=== PATIENT | female | born 1960 | race Caucasian/White ===

== ENCOUNTER → 2022-10-31 13:07 | Outpatient (BNVA) | payer OTHER, SELFPAY | PROVIDERS: PCP Physician Assistant; Referring Provider Physician Assistant; Visit Provider Physician Assistant ==

== ENCOUNTER 2023-06-20 09:41 | Outpatient (AMB) | payer OTHER, SELFPAY ==
--- NOTE | 2023-06-20 09:55 | A.OFFVIS_ITS ---
Intake Vital Signs 3 06/20/23 10:03 Height 5 ft 4 in Weight 105 lb 8 oz BMI 18.1 BP 136/69 Blood Pressure Location Lt brachial Position Sitting Respiration 18 Pulse 64 Pulse Source Pulse Oximeter Pulse Oximetry (%) 96 Oxygen Delivery Method Room Air Intake Visit Reasons: Neck pain Allergies No Known Allergies Allergy (Verified 06/20/23 09:53) HPI HPI Comments 2 History of Present Illness0 Details Chrissy a very pleasant 62-year-old female who presents to the office today for evaluation management of her chronic neck pain Patient reports she has been suffering with this pain for approximately 1 year, she denies inciting injury. Denies previous surgical interventions of her neck or back. Pain is rated today 9/10,worse with movement. She reports the neck pain is radiating up into her head and causing her severe headaches. She has an appointment in one-week with Neurology for migraines. Currently she is only taking Fioricet for the headaches, up to 5 tabs daily, with some improvement. She has tried nonsteroidal anti-inflammatory medication, baclofen, gabapentin and tramadol all without improvement of her neck or back pain. Patient reports that she is not able to tolerate physical therapy as it is too painful. She reports pain radiates to the top of her shoulders, denies radiation down either arm. Recent MRI performed by her primary care doctor, she states she was told she has arthritis. She has been using lidocaine patches with some improvement. Patient has never undergone chiropractor, acupuncture, massage or previous attempts at interventional management. In terms of muscle damage condition is described as aching, tiring, exhausting, throbbing. Pain is negatively impacting patient's enjoyment of life, general activity, mood, recreational activities, relationships people and walking Patient denies implantable devices, current use of anticoagulation. Review of Systems Const All systems reviewed & are unremarkable except as noted in HPI and below Physical Exam Vital Signs: Last Vital Signs Pulse 64 06/20/23 10:03 Resp 18 06/20/23 10:03 BP 136/69 06/20/23 10:03 Pulse Ox 96 06/20/23 10:03 Oxygen Delivery Method Room Air 06/20/23 10:03 BMI result Body Mass Index 18.1 General: awake, alert, oriented. Answers questions appropriately. Fully engaged in examination. Skin: warm, dry, intact HEENT: Normocephalic. Hearing intact. Cardiac: External chest normal in appearance. Respiratory: No cough, audible wheezing or stridor. Abdomen: without gross distension. MS: No obvious swelling or deformities. Bilateral upper extremity strength 5/5 Bilateral upper extremity DTR intact Spurling positive Decreased cervical range of motion in all planes, notable for pain agrees with all range of motion Tenderness to palpation upper and middle trapezius bilaterally Tenderness to palpation midline cervical vertebrae and cervical paraspinal muscles Neurological: Oriented to person, place, time and situation. Thought process intact. No gait abnormalities appreciated. Psychiatric: Appropriate mood and affect. Good judgment and insight. Results Reviewed Results Reviewed: 06/04/2023 MRI CSpine W/O Assessment & Plan Assessment & Plan (1) Cervical spondylosis: Code(s): M47.812 - Spondylosis without myelopathy or radiculopathy, cervical region (2) Trapezius muscle strain: Code(s): S46.819A - Strain of other muscles, fascia and tendons at shoulder and upper arm level, unspecified arm, initial encounter Plan He says a very pleasant 62-year-old female who presented to the office today for evaluation management of her chronic neck pain. History, physical exam and provocative testing consistent with lumbar spondylosis and trapezius muscle strain. Patient is not able to tolerate physical therapy due to the pain. She has exhausted greater than 6 months of conservative therapy including nonsteroidal anti-inflammatory medication, heat, ice, topical patches, prescription medications muscle relaxers all without improvement of her pain Methocarbamol 500 mg p.o. t.i.d. as needed, patient advised on cautions for use. Salonpas patches, 1 patch daily as needed. Alternate with lidocaine patches, do not apply both at the same time. Follow up with Neurology as planned for headaches Discussed options for treatment including diagnostic interventional testing, epidural steroid injections, peripheral nerve stimulation with Sprint, RFA and more permanent neuromodulation. Informational pamphlets provided. Will schedule for fluoroscopy guided diagnostic bilateral C3-C4-C5 medial branch blocks with local anesthetic. Plan for Sprint versus RFA pending positive results of the diagnostic injections. All questions and concerns have been answered and patient agrees with the plan. Follow up after injections, sooner if needed. Medications: New 2 methocarbamol Discontinue use of baclofen while taking this medication. No driving while taking this medication. 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
[2023-06-20 10:03] VITALS: BP 136/69; PULSE 64; RESP 18; O2SAT 96; BMI 18.1
== END 2023-06-20 10:31 | disposition home or self-care (01) ==
PROVIDERS: PCP Physician Assistant; Visit Provider Registered Nurse Emergency
DX: M47.812 Spondylosis without myelopathy or radiculopathy, cervical region (principal); S46.819A Strain of other muscles, fascia and tendons at shoulder and upper arm level, unspecified arm, initial encounter
CPT/HCPCS: 99204

== ENCOUNTER → 2023-06-20 09:41 | Outpatient (BNVA) | payer OTHER, SELFPAY | PROVIDERS: PCP Physician Assistant; Visit Provider Registered Nurse Emergency ==

== ENCOUNTER 2023-07-31 06:52 | Outpatient (REF) | payer OTHER, SELFPAY ==
--- NOTE | ~2023-07-31 | FL_ITS ---
EXAMINATION: XR FLUOROSCOPY WITH IMAGES CLINICAL INFORMATION: Spondylosis without myelopathy or radiculopathy, cervical region. COMPARISON: None available. TECHNIQUE: Fluoroscopy Supervised By: Dr. Salmeron. Fluoroscopy Time: 0.6. Cumulative Dose: 2.12 mGy. DAP: 0.0347 Gycm2. Images: 6. FINDINGS: Intraoperative fluoroscopy and spot films were performed during a procedure in the OR. [place] are seen bilaterally overlying the upper cervical spine with contrast surrounding their tips. Please see Dr. Salmeron's report for complete details. FL/FL guidance in treatment room IMPRESSION: Intraoperative fluoroscopy and spot films were obtained. Please see Dr. Salmeron's report for complete details.
== END 2023-07-31 06:53 | disposition home or self-care (01) ==
LOC: CF 06:52
PROVIDERS: PCP Physician Assistant; Visit Provider Anesthesiology
DX: M47.812 Spondylosis without myelopathy or radiculopathy, cervical region (principal); S46.819D Strain of other muscles, fascia and tendons at shoulder and upper arm level, unspecified arm, subsequent encounter
CPT/HCPCS: 64490; 64491; J2795; Q9967

== ENCOUNTER 2023-07-31 09:02 | Outpatient (AMB) | payer OTHER, SELFPAY ==
--- NOTE | 2023-07-31 09:32 | A.OFFVIS_ITS ---
Vital Signs 07/31/23 10:09 07/31/23 10:11 Height 5 ft 4 in Weight 105 lb BMI 18.0 BP 136/84 140/88 H Blood Pressure Location Lt brachial Lt brachial Position Sitting Sitting Respiration 18 20 Pulse 78 84 Pulse Source Pulse Oximeter Pulse Oximeter Pulse Oximetry (%) 98 84 L Oxygen Delivery Method Room Air Room Air Comment Pre-Op Post-Op Intake Visit Reasons: BILATERAL DIAGNOSTIC C3, C4, C5 MBB Allergies No Known Allergies Allergy (Verified 06/20/23 09:53) Physical Exam Vital Signs: Last Vital Signs Pulse 84 07/31/23 10:11 Resp 20 07/31/23 10:11 BP 140/88 H 07/31/23 10:11 Pulse Ox 84 L 07/31/23 10:11 Oxygen Delivery Method Room Air 07/31/23 10:11 BMI result Body Mass Index 18.0 Assessment & Plan Assessment & Plan (1) Cervical spondylosis: Code(s): M47.812 - Spondylosis without myelopathy or radiculopathy, cervical region Category: Medical Plan: Bilateral C3-C4-C5 diagnostic medial branch block. ?Informed consent was explained to the patient. All questions were explained and answered.? The patient was taken inside the operating room where she was positioned prone on the operating table. Time-out was performed delineating correct site, side, the nature of the procedure, patient's allergy, preoperative antibiotic if needed.? All operating room staff was participating in OR time-out procedure. The back of the neck and upper back were prepped with ChloraPrep and draped with sterile towels.? Sterilely draped C-arm was brought over the operating field and sq picture of? C3-C4-C5 vertebrae were delineated on the screen.? Points of interest were delineated as lateral masses bilaterally of the vertebrae as above. The waste of each lateral mass was chosen as the target of the tip of the needles on AP view and lateral view was used as a safety view for the tips of the needles position.?? The projections of the point of interest to the skin were injected with the small amount of local anesthetic lidocaine 2% 1-1.5 cc.? After that 22 gauge 3and 1/2 inch? spinal needles were driven to the point of interest in tunnel vision fashion. After needles gently contacted the bone at the point of interests the needle was injected with small amount of the contrast. The injections did not demonstrate intravascular or intrathecal spread.. After that ropivacaine 0.5%-1cc. was injected into each location of the needles.? Upon completion of the injections the needles were removed and sterile dressings were applied, the patient was a taken? outside of the operating room to recovery room where she recovered uneventfully. (2) Trapezius muscle strain: Code(s): S46.819A - Strain of other muscles, fascia and tendons at shoulder and upper arm level, unspecified arm, initial encounter Category: Medical Plan He says a very pleasant 62-year-old female who presented to the office today for evaluation management of her chronic neck pain. History, physical exam and provocative testing consistent with lumbar spondy losis and trapezius muscle strain. Patient is not able to tolerate physical therapy due to the pain. She has exhausted greater than 6 months of conservative therapy including nonsteroidal anti-inflammatory medication, heat, ice, topical patches, prescription medications muscle relaxers all without improvement of her pain Methocarbamol 500 mg p.o. t.i.d. as needed, patient advised on cautions for use. Salonpas patches, 1 patch daily as needed. Alternate with lidocaine patches, do not apply both at the same time. Follow up with Neurology as planned for headaches Discussed options for treatment including diagnostic interventional testing, epidural steroid injections, peripheral nerve stimulation with Sprint, RFA and more permanent neuromodulation. Informational pamphlets provided. Will schedule for fluoroscopy guided diagnostic bilateral C3-C4-C5 medial branch blocks with local anesthetic. Plan for Sprint versus RFA pending positive results of the diagnostic injections. All questions and concerns have been answered and patient agrees with the plan. Follow up after injections, sooner if needed. Orders: Orders FL guidance in treatment room Today M47.812 - Spondylosis without myelopathy or radiculopathy, cervical region Coding Level of Care Code Procedure Only Diagnoses Cervical spondylosis M47.812 Trapezius muscle strain S46.819A
[2023-07-31 10:09] VITALS: BP 136/84; PULSE 78; RESP 18; O2SAT 98; BMI 18.0
[2023-07-31 10:11] VITALS: BP 140/88; PULSE 84; RESP 20; O2SAT 84
== END 2023-07-31 10:09 | disposition home or self-care (01) ==
LOC: HO.PMCPRC 09:02
PROVIDERS: PCP Physician Assistant; Visit Provider Anesthesiology
DX: M47.812 Spondylosis without myelopathy or radiculopathy, cervical region (principal); S46.819A Strain of other muscles, fascia and tendons at shoulder and upper arm level, unspecified arm, initial encounter
CPT/HCPCS: 64490; 64491

== ENCOUNTER 2023-08-03 11:25 | Outpatient (AMB) | payer OTHER, SELFPAY ==
--- NOTE | 2023-08-03 11:30 | A.OFFVIS_ITS ---
Vital Signs 3 08/03/23 12:11 Height 5 ft 4 in Weight 145 lb BMI 24.9 BP 147/77 H Blood Pressure Location Lt brachial Position Sitting Respiration 18 Pulse 79 Pulse Source Pulse Oximeter Pulse Oximetry (%) 96 Oxygen Delivery Method Room Air Intake Visit Reasons: BILATERAL DIAGNOSTIC C3, C4, C5 MBB Allergies No Known Allergies Allergy (Verified 06/20/23 09:53) HPI Comments Details: Chrissy presents back to the office today for follow up, 2 days s/p bilateral diagnostic C3, C4, C5 MBBs. Patient reports very little improvement in her pain after the procedure. prior to procedure 8/10 1 hour post 4/10 2 hours post 0/10 3 hours post 4/10 4 hours post and beyond return to baseline Reports headaches persisted. They are daily and bilateral. 12/26. Was seen by Neurology 2 weeks ago and started on 25 mg of amitriptyline daily. Prior: Chrissy a very pleasant 62-year-old female who presents to the office today for evaluation management of her chronic neck pain Patient reports she has been suffering with this pain for approximately 1 year, she denies inciting injury. Denies previous surgical interventions of her neck or back. Pain is rated today 9/10,worse with movement. She reports the neck pain is radiating up into her head and causing her severe headaches. She has an appointment in one-week with Neurology for migraines. Currently she is only taking Fioricet for the headaches, up to 5 tabs daily, with some improvement. She has tried nonsteroidal anti-inflammatory medication, baclofen, gabapentin and tramadol all without improvement of her neck or back pain. Patient reports that she is not able to tolerate physical therapy as it is too painful. She reports pain radiates to the top of her shoulders, denies radiation down either arm. Recent MRI performed by her primary care doctor, she states she was told she has arthritis. She has been using lidocaine patches with some improvement. Patient has never undergone chiropractor, acupuncture, massage or previous attempts at interventional management. In terms of muscle damage condition is described as aching, tiring, exhausting, throbbing. Pain is negatively impacting patient's enjoyment of life, general activity, mood, recreational activities, relationships people and walking Patient denies implantable devices, current use of anticoagulation. Review of Systems Const All systems reviewed & are unremarkable except as noted in HPI and below Physical Exam Vital Signs: Last Vital Signs Pulse 79 08/03/23 12:11 Resp 18 08/03/23 12:11 BP 147/77 H 08/03/23 12:11 Pulse Ox 96 08/03/23 12:11 Oxygen Delivery Method Room Air 08/03/23 12:11 BMI result Body Mass Index 24.9 General: awake, alert, oriented. Answers questions appropriately. Fully engaged in examination. Skin: warm, dry, intact HEENT: Normocephalic. Hearing intact. Cardiac: External chest normal in appearance. Respiratory: No cough, audible wheezing or stridor. Abdomen: without gross distension. MS: No obvious swelling or deformities. Decreased cervical range of motion in all planes, notable for pain increase with range of motion Tenderness to palpation upper and middle trapezius bilaterally Tenderness to palpation midline cervical vertebrae and cervical paraspinal muscles Tenderness to scalp over occiput Neurological: Oriented to person, place, time and situation. Thought process intact. No gait abnormalities appreciated. Psychiatric: Appropriate mood and affect. Good judgment and insight. Results Reviewed Results Reviewed: 06/04/2023 MRI CSpine W/O Assessment & Plan Assessment & Plan (1) Cervical spondylosis: Code(s): M47.812 - Spondylosis without myelopathy or radiculopathy, cervical region Category: Medical (2) Trapezius muscle strain: Code(s): S46.819A - Strain of other muscles, fascia and tendons at shoulder and upper arm level, unspecified arm, initial encounter Category: Medical (3) Chronic headaches: Code(s): R51.9 - Headache, unspecified; G89.29 - Other chronic pain Category: Medical Plan Patient presents back to the office today for follow-up, 2 days status post bilateral C3-C4 C5 and BBs with local anesthetic Patient reports very little improvement in pain for 3 hours after the procedure, then pain returned to baseline if not worse. Patient is not able to tolerate physical therapy due to the pain. She has exhausted greater than 6 months of conservative therapy including nonsteroidal anti-inflammatory medication, heat, ice, topical patches, prescription medications muscle relaxers all without improvement of her pain C/W Methocarbamol 500 mg p.o. t.i.d. as needed, patient advised on cautions for use. C/W Salonpas patches, 1 patch daily as needed. Alternate with lidocaine patches, do not apply both at the same time. Patient requesting referral to Neurology, she was unhappy with the previous provider that she saw. Discussed options for treatment including diagnostic interventional testing, epidural steroid injections, peripheral nerve stimulation with Sprint, RFA and more permanent neuromodulation. Will schedule for ultrasound-guided occipital nerve blocks. All questions and concerns have been answered and patient agrees with the plan. Follow up after injections, sooner if needed. Orders: Referrals 2 Neurology Referral G89.29 - Other chronic pain, R51.9 - Headache, unspecified Coding Level of Care Code Est Pt Level 3 (35433) Diagnoses Cervical spondylosis M47.812 Trapezius muscle strain S46.819A Chronic headaches R51.9; G89.29
[2023-08-03 12:11] VITALS: BP 147/77; PULSE 79; RESP 18; O2SAT 96; BMI 24.9
== END 2023-08-03 12:13 | disposition home or self-care (01) ==
PROVIDERS: PCP Physician Assistant; Visit Provider Registered Nurse Emergency
DX: M47.812 Spondylosis without myelopathy or radiculopathy, cervical region (principal); S46.819A Strain of other muscles, fascia and tendons at shoulder and upper arm level, unspecified arm, initial encounter; R51.9 Headache, unspecified; G89.29 Other chronic pain
CPT/HCPCS: 99213

== ENCOUNTER → 2023-08-03 11:25 | Outpatient (BNVA) | payer OTHER, SELFPAY | PROVIDERS: PCP Physician Assistant; Visit Provider Registered Nurse Emergency ==

== ENCOUNTER 2023-08-15 12:54 | Outpatient (AMB) | payer OTHER, SELFPAY ==
--- NOTE | 2023-08-15 13:01 | A.OFFVIS_ITS ---
Vital Signs 3 08/15/23 13:13 Height 5 ft 4 in Weight 145 lb BMI 24.9 BP 114/61 Blood Pressure Location Lt brachial Position Sitting Respiration 14 Pulse 82 Pulse Source Pulse Oximeter Pulse Oximetry (%) 96 Oxygen Delivery Method Room Air Intake Visit Reasons: occipital NB Allergies No Known Allergies Allergy (Verified 08/15/23 13:15) Medication List - Last Reconciled 08/15/23 by Yelena Cook LPN amitriptyline mg PO tmkokominv-forltqcoxaqqr-zujq 50-325-40 mg tabs PO levothyroxine 75 mcg PO DAILY lidocaine 5% 2 patches topical DAILY methocarbamol 500 mg PO TID PRN methyl salicylate-menthol 10-3 % (Salonpas (methyl salicylate-menthol)) 1 patch topical ONCE PRN oxybutynin chloride ER 15 mg PO DAILY tramadol 50 mg PO Q4H PRN trazodone 100 mg PO BEDTIME HPI HPI occipital NB: Details: 62-year-old female who presents to the office today for left occipital nerve block Denies any recent cough, cold, infection, fever or other significant changes in medical history since last office visit. Patient complains of pain in the neck since about 1 year. She denies any injury or trauma to the neck. She rates the pain as 9 on a scale to 1 to 10. Her neck pain radiates to her head and cause severe headaches. It also radiates to top of the shoulders, but denies radiation to the arm. She is currently taking Fioricet up to 5 tablets daily to improve the pain. She is using lidocaine patches with some improvement. She previously has tried baclofen, gabapentin and tramadol with no benefit. She is able to do physical therapy because of the severe pain. She denies getting chiropractic treatment, acupuncture Review of Systems Const All systems reviewed & are unremarkable except as noted in HPI and below Physical Exam Vital Signs: Last Vital Signs Pulse 82 08/15/23 13:13 Resp 14 08/15/23 13:13 BP 114/61 08/15/23 13:13 Pulse Ox 96 08/15/23 13:13 Oxygen Delivery Method Room Air 08/15/23 13:13 BMI result Body Mass Index 24.9 General: Appears afebrile. Alert and oriented. Mood and affect appropriate. Follows and participates in conversation appropriately. Respiratory effort is unlabored. Able to transition from sit to stand unassisted. Office Procedures Nerve Block Details: Greater occipital nerve block bilateral A ultrasound was used to isolate the location of the targeted nerves. These injection sites were prepped with alcohol. Using a sterile technique, a 25 gauge 1.5-inch needle was introduced into each overlying nerve. A total of 4ml Lidocaine 2% followed by 3 mL 0.25% ropivacaine was injected around the right greater and lesser occipital nerves in a fan-like motion. This was then repeated on the left side. Aspirations were negative for blood, CSF, and air prior to injection at all sites. The needle was removed, the skin cleansed and a sterile bandage was applied where needed. The patient tolerated the procedure well and no complications were encountered. Following the procedure the patient's vital signs were stable. He reported resolution of his pre-procedure headache. The patient was discharged home in good condition with post-procedural instructions. Time Out: Immediately prior to the procedure, the following was verbally confirmed that there is a signed consent form and that the correct patient, planned procedure, site and side are consistent with documentation and that necessary equipment and/or blood products are available prior to the start of the case. Complications: none EBL: <5 cc. CPT: [id number] Occipital Procedure code (CPT) selection complete Results Reviewed Results Reviewed: Assessment & Plan Assessment & Plan (1) Occipital neuralgia: Code(s): M54.81 - Occipital neuralgia Category: Medical Plan Patient is status post bilateral ultrasound guided greater occipital nerve block. Patient tolerated procedure well and was discharged home in stable condition with discharge instructions. All questions were answered. We will follow-up in two weeks via telephone or in clinic to assess response to therapy. A follow-up appointment was made during today's visit. Scribed for Dr. Jose by Sarah Simon, medical technician, on 08/15/2023. I, Dr. Jose, have personally reviewed and agree with the information entered by the scribe. Coding Level of Care Code Procedure Only Diagnoses Occipital neuralgia M54.81 CPT Codes Nerve Block - CPT: 49765-[id number] Occipital ([id number])
[2023-08-15 13:13] VITALS: BP 114/61; PULSE 82; RESP 14; O2SAT 96; BMI 24.9
== END 2023-08-15 13:35 | disposition home or self-care (01) ==
PROVIDERS: PCP Physician Assistant; Visit Provider Internal Medicine
DX: M54.81 Occipital neuralgia (principal)
CPT/HCPCS: 64405; 64450; 76942

== ENCOUNTER → 2023-08-15 12:54 | Outpatient (BNVA) | payer OTHER, SELFPAY | PROVIDERS: PCP Physician Assistant; Visit Provider Internal Medicine | DX: M54.81 Occipital neuralgia (principal) | CPT/HCPCS: 64405; 64450; J2795 ==

== ENCOUNTER 2023-08-17 11:00 | Outpatient (AMB) | payer OTHER, SELFPAY ==
[2023-08-17 11:07] VITALS: BP 121/92; PULSE 76; RESP 16; O2SAT 97; BMI 24.9
--- NOTE | 2023-08-17 11:07 | MHC.OFFVIS ---
Vital Signs 08/17/23 11:07 Height 5 ft 4 in Weight 145 lb BMI 24.9 BP 121/92 H Blood Pressure Location Lt brachial Position Sitting Respiration 16 Pulse 76 Pulse Source Pulse Oximeter Pulse Oximetry (%) 97 Oxygen Delivery Method Room Air Intake Visit Reasons: s/p occipital NB Allergies No Known Allergies Allergy (Verified 08/15/23 13:15) Coding
--- NOTE | 2023-08-17 13:16 | A.OFFVIS_ITS ---
Vital Signs 3 08/17/23 11:07 Height 5 ft 4 in Weight 145 lb BMI 24.9 BP 121/92 H Blood Pressure Location Lt brachial Position Sitting Respiration 16 Pulse 76 Pulse Source Pulse Oximeter Pulse Oximetry (%) 97 Oxygen Delivery Method Room Air Intake Visit Reasons: s/p occipital NB Allergies No Known Allergies Allergy (Verified 08/15/23 13:15) HPI Comments Details: Patient presents back to the office today for follow up 2 days s/p occipital nerve blocks She reports no improvement in her pain, function or mobility after the procedure. pain today rated 9/10. She has a follow up with new neurologist in a couple weeks. Prior: Chrissy presents back to the office today for follow up, 2 days s/p bilateral diagnostic C3, C4, C5 MBBs. Patient reports very little improvement in her pain after the procedure. prior to procedure 8/10 1 hour post 4/10 2 hours post 0/10 3 hours post 4/10 4 hours post and beyond return to baseline Reports headaches persisted. They are daily and bilateral. 12/26. Was seen by Neurology 2 weeks ago and started on 25 mg of amitriptyline daily. Prior: Chrissy a very pleasant 62-year-old female who presents to the office today for evaluation management of her chronic neck pain Patient reports she has been suffering with this pain for approximately 1 year, she denies inciting injury. Denies previous surgical interventions of her neck or back. Pain is rated today 9/10,worse with movement. She reports the neck pain is radiating up into her head and causing her severe headaches. She has an appointment in one-week with Neurology for migraines. Currently she is only taking Fioricet for the headaches, up to 5 tabs daily, with some improvement. She has tried nonsteroidal anti-inflammatory medication, baclofen, gabapentin and tramadol all without improvement of her neck or back pain. Patient reports that she is not able to tolerate physical therapy as it is too painful. She reports pain radiates to the top of her shoulders, denies radiation down either arm. Recent MRI performed by her primary care doctor, she states she was told she has arthritis. She has been using lidocaine patches with some improvement. Patient has never undergone chiropractor, acupuncture, massage or previous attempts at interventional management. In terms of muscle damage condition is described as aching, tiring, exhausting, throbbing. Pain is negatively impacting patient's enjoyment of life, general activity, mood, recreational activities, relationships people and walking Patient denies implantable devices, current use of anticoagulation. Review of Systems Const All systems reviewed & are unremarkable except as noted in HPI and below Physical Exam Vital Signs: Last Vital Signs Pulse 76 08/17/23 11:07 Resp 16 08/17/23 11:07 BP 121/92 H 08/17/23 11:07 Pulse Ox 97 08/17/23 11:07 Oxygen Delivery Method Room Air 08/17/23 11:07 BMI result Body Mass Index 24.9 General: awake, alert, oriented. Answers questions appropriately. Fully engaged in examination. Skin: warm, dry, intact HEENT: Normocephalic. Hearing intact. Cardiac: External chest normal in appearance. Respiratory: No cough, audible wheezing or stridor. Abdomen: without gross distension. MS: No obvious swelling or deformities. Tenderness to palpation upper and middle trapezius bilaterally Tenderness to palpation midline cervical vertebrae and cervical paraspinal muscles Neurological: Oriented to person, place, time and situation. Thought process intact. No gait abnormalities appreciated. Psychiatric: Appropriate mood and affect. Good judgment and insight. Quality Reporting (2019) Adult ([facility] 138/05/10/68) Body Mass Index: 24.9 Results Reviewed Results Reviewed: Assessment & Plan Assessment & Plan (1) Cervical spondylosis: Code(s): M47.812 - Spondylosis without myelopathy or radiculopathy, cervical region Category: Medical (2) Trapezius muscle strain: Code(s): S46.819A - Strain of other muscles, fascia and tendons at shoulder and upper arm level, unspecified arm, initial encounter Category: Medical (3) Chronic headaches: Code(s): R51.9 - Headache, unspecified; G89.29 - Other chronic pain Category: Medical Plan Patient presents back to the office today for follow-up, 2 days status post occipital nerve blocks She reports no pain relief after the injections. Patient is not able to tolerate physical therapy due to the pain. She has exhausted greater than 6 months of conservative therapy including nonsteroidal anti-inflammatory medication, heat, ice, topical patches, prescription medications muscle relaxers all without improvement of her pain Referral placed to neurology at last visit, she has new patient appt in a couple weeks. All questions and concerns have been answered and patient agrees with the plan. Follow up after neurology evaluation, sooner if needed. Coding Level of Care Code Est Pt Level 3 (12042) Diagnoses Cervical spondylosis M47.812 Trapezius muscle strain S46.819A Chronic headaches R51.9; G89.29
[2023-08-17 13:21] VITALS: BMI 24.9
== END 2023-08-17 11:34 | disposition home or self-care (01) ==
LOC: HO.PMC 11:00
PROVIDERS: PCP Physician Assistant; Visit Provider Registered Nurse Emergency
DX: M47.812 Spondylosis without myelopathy or radiculopathy, cervical region (principal); S46.819A Strain of other muscles, fascia and tendons at shoulder and upper arm level, unspecified arm, initial encounter; R51.9 Headache, unspecified; G89.29 Other chronic pain
CPT/HCPCS: 99213

== ENCOUNTER → 2023-08-17 11:00 | Outpatient (BNVA) | payer OTHER, SELFPAY | PROVIDERS: PCP Physician Assistant; Visit Provider Registered Nurse Emergency ==

== ENCOUNTER 2023-09-11 14:02 | Outpatient (REF) | payer OTHER, SELFPAY ==
[2023-09-11 15:59] LABS: Erythrocyte Sedimentation Rate 3 MM/HR (0-20)
== END 2023-09-11 14:03 | disposition home or self-care (01) ==
LOC: HO.LAB 14:02
PROVIDERS: PCP Physician Assistant; Visit Provider Psychiatry & Neurology Neurology
DX: R51.9 Headache, unspecified (principal)
CPT/HCPCS: 36415; 85652; 86617; 86618

== ENCOUNTER 2023-09-18 13:51 | Outpatient (REF) | payer OTHER, SELFPAY ==
[2023-09-19 08:53] LABS: Lyme Abs Screen <0.90 index
== END 2023-09-18 13:52 | disposition home or self-care (01) ==
LOC: HO.LAB 13:51
PROVIDERS: PCP Physician Assistant; Visit Provider Psychiatry & Neurology Neurology
DX: R51.9 Headache, unspecified (principal)
CPT/HCPCS: 36415; 86617; 86618

== ENCOUNTER 2023-11-15 08:31 | Outpatient (AMB) | payer OTHER, SELFPAY ==
[2023-11-15 08:37] VITALS: BP 127/65; PULSE 65; O2SAT 96; BMI 17.3
--- NOTE | 2023-11-15 08:37 | A.OFFVIS_ITS ---
Vital Signs 3 11/15/23 08:37 Height 5 ft 4 in Weight 101 lb BMI 17.3 BP 127/65 Blood Pressure Location Rt brachial Position Sitting Pulse 65 Pulse Source Pulse Oximeter Pulse Oximetry (%) 96 Oxygen Delivery Method Room Air Intake Visit Reasons: discuss next injection Allergies No Known Allergies Allergy (Verified 11/15/23 08:39) Medication List - Last Reconciled 11/15/23 by Heather Schmid [id number] 50-325-40 mg tabs PO levothyroxine 75 mcg PO DAILY lidocaine 5% 2 patches topical DAILY methocarbamol 500 mg PO TID PRN oxybutynin chloride ER 15 mg PO DAILY tramadol 50 mg PO Q4H PRN trazodone 100 mg PO BEDTIME HPI Comments Details: Chrissy presents back to the office today for follow up. Pain to occipital area has started to return. She now feels that the occipital nerve blocks provided her 90% pain relief for 2 months and she would like to repeat the injections At last visit was not differentiating between her occipital nerve pain versus pain to the right side of her neck She states the right sided neck pain has persisted, she is awaiting surgery to remove a cyst and enlarged lymph node. date pending insurance approval Prior: Patient presents back to the office today for follow up 2 days s/p occipital nerve blocks She reports no improvement in her pain, function or mobility after the procedure. pain today rated 9/10. She has a follow up with new neurologist in a couple weeks. Prior: Chrissy presents back to the office today for follow up, 2 days s/p bilateral diagnostic C3, C4, C5 MBBs. Patient reports very little improvement in her pain after the procedure. prior to procedure 8/10 1 hour post 4/10 2 hours post 0/10 3 hours post 4/10 4 hours post and beyond return to baseline Reports headaches persisted. They are daily and bilateral. 12/26. Was seen by Neurology 2 weeks ago and started on 25 mg of amitriptyline daily. Prior: Chrissy a very pleasant 62-year-old female who presents to the office today for evaluation management of her chronic neck pain Patient reports she has been suffering with this pain for approximately 1 year, she denies inciting injury. Denies previous surgical interventions of her neck or back. Pain is rated today 9/10,worse with movement. She reports the neck pain is radiating up into her head and causing her severe headaches. She has an appointment in one-week with Neurology for migraines. Currently she is only taking Fioricet for the headaches, up to 5 tabs daily, with some improvement. She has tried nonsteroidal anti-inflammatory medication, baclofen, gabapentin and tramadol all without improvement of her neck or back pain. Patient reports that she is not able to tolerate physical therapy as it is too painful. She reports pain radiates to the top of her shoulders, denies radiation down either arm. Recent MRI performed by her primary care doctor, she states she was told she has arthritis. She has been using lidocaine patches with some improvement. Patient has never undergone chiropractor, acupuncture, massage or previous attempts at interventional management. In terms of muscle damage condition is described as aching, tiring, exhausting, throbbing. Pain is negatively impacting patient's enjoyment of life, general activity, mood, recreational activities, relationships people and walking Patient denies implantable devices, current use of anticoagulation. Review of Systems Const All systems reviewed & are unremarkable except as noted in HPI and below Physical Exam Vital Signs: Last Vital Signs Pulse 65 11/15/23 08:37 BP 127/65 11/15/23 08:37 Pulse Ox 96 11/15/23 08:37 Oxygen Delivery Method Room Air 11/15/23 08:37 BMI result Body Mass Index 17.3 General: awake, alert, oriented. Answers questions appropriately. Fully engaged in examination. Skin: warm, dry, intact HEENT: Normocephalic. Hearing intact. Cardiac: External chest normal in appearance. Respiratory: No cough, audible wheezing or stridor. Abdomen: without gross distension. MS: No obvious swelling or deformities. Decreased cervical range of motion in all planes, notable for pain increase with range of motion Tenderness to palpation upper and middle trapezius bilaterally Tenderness to palpation midline cervical vertebrae and cervical paraspinal muscles Tenderness to scalp over occiput Neurological: Oriented to person, place, time and situation. Thought process intact. No gait abnormalities appreciated. Psychiatric: Appropriate mood and affect. Good judgment and insight. Results Reviewed Results Reviewed: Assessment & Plan Assessment & Plan (1) Cervical spondylosis: Code(s): M47.812 - Spondylosis without myelopathy or radiculopathy, cervical region Category: Medical (2) Trapezius muscle strain: Code(s): S46.819A - Strain of other muscles, fascia and tendons at shoulder and upper arm level, unspecified arm, initial encounter Category: Medical (3) Chronic headaches: Code(s): R51.9 - Headache, unspecified; G89.29 - Other chronic pain Category: Medical Plan Patient presents back to the office today for follow-up Patient is not able to tolerate physical therapy due to the pain. She has exhausted greater than 6 months of conservative therapy including nonsteroidal anti-inflammatory medication, heat, ice, topical patches, prescription medications muscle relaxers all without improvement of her pain Discussed options for treatment including diagnostic interventional testing, epidural steroid injections, peripheral nerve stimulation with Sprint, RFA and more permanent neuromodulation. Will schedule for repeat ultrasound-guided occipital nerve blocks in office with Dr. Jose. All questions and concerns have been answered and patient agrees with the plan. Follow up after injections, sooner if needed. Coding Level of Care Code Est Pt Level 3 (36163) Diagnoses Cervical spondylosis M47.812 Trapezius muscle strain S46.819A Chronic headaches R51.9; G89.29
== END 2023-11-15 08:56 | disposition home or self-care (01) ==
PROVIDERS: PCP Physician Assistant; Referring Provider Physician Assistant; Visit Provider Registered Nurse Emergency
DX: M47.812 Spondylosis without myelopathy or radiculopathy, cervical region (principal); S46.819A Strain of other muscles, fascia and tendons at shoulder and upper arm level, unspecified arm, initial encounter; R51.9 Headache, unspecified; G89.29 Other chronic pain
CPT/HCPCS: 99213

== ENCOUNTER → 2023-11-15 08:31 | Outpatient (BNVA) | payer OTHER, SELFPAY | PROVIDERS: PCP Physician Assistant; Referring Provider Physician Assistant; Visit Provider Registered Nurse Emergency ==

== ENCOUNTER 2023-12-07 09:13 | Outpatient (AMB) | payer OTHER, SELFPAY ==
--- NOTE | 2023-12-07 09:18 | MHC.OFFVIS ---
Vital Signs 12/07/23 09:19 Height 5 ft 4 in Weight 99 lb BMI 17.0 BP 125/63 Blood Pressure Location Lt brachial Position Sitting Respiration 14 Pulse 67 Pulse Source Pulse Oximeter Pulse Oximetry (%) 97 Oxygen Delivery Method Room Air Intake Visit Reasons: occipital NB Allergies bupropion [From Wellbutrin] Adverse Reaction (Severe, Verified 12/07/23 09:21) Itching Medication List - Last Reconciled 12/07/23 by Yelena Cook LPN [id number]-[id number] 50-325-40 mg tabs PO levothyroxine 75 mcg PO DAILY methocarbamol 500 mg PO TID PRN oxybutynin chloride ER 15 mg PO DAILY tramadol 50 mg PO Q4H PRN trazodone 100 mg PO BEDTIME HPI HPI occipital NB: Details: 62-year-old female who presents today to the office for an occipital nerve block. Denies any recent cough, cold, infection, fever or other significant changes in medical history since last office visit.? Past procedures 08/15/2023: Greater occipital nerve block bilateral, US guided: 75% relief for 4 months. Review of Systems Const All systems reviewed & are unremarkable except as noted in HPI and below Physical Exam Vital Signs: Last Vital Signs Pulse 67 12/07/23 09:19 Resp 14 12/07/23 09:19 BP 125/63 12/07/23 09:19 Pulse Ox 97 12/07/23 09:19 Oxygen Delivery Method Room Air 12/07/23 09:19 BMI result Body Mass Index 17.0 General: Appears afebrile. Alert and oriented. Mood and affect appropriate. Follows and participates in conversation appropriately. Respiratory effort is unlabored. Able to transition from sit to stand unassisted. Ambulates with bilaterally normal heel strike and toe off. Office Procedures Nerve Block Details: Bilateral Greater Occipital Nerve Block Using a sterile technique, a 25 gauge 1.5-inch needle was introduced into each overlying nerve. A total of 3 mL 0.5% ropivacaine was injected around the right greater and lesser occipital nerves in a fan-like motion. This was then repeated on the left side. Aspirations were negative for blood, CSF, and air prior to injection at all sites. The needle was removed, the skin cleansed and a sterile bandage was applied where needed. The patient tolerated the procedure well and no complications were encountered. Following the procedure the patient's vital signs were stable. He reported resolution of his pre-procedure headache. The patient was discharged home in good condition with post-procedural instructions. Time Out: Immediately prior to the procedure, the following was verbally confirmed that there is a signed consent form and that the correct patient, planned procedure, site and side are consistent with documentation and that necessary equipment and/or blood products are available prior to the start of the case. Complications: none EBL: <5 cc. CPT: 08161-Qipujvn Occipital (Bilateral) Procedure code (CPT) selection complete Results Reviewed Results Reviewed: No imaging is available for review. Assessment & Plan Assessment & Plan (1) Occipital neuralgia: Code(s): M54.81 - Occipital neuralgia Category: Medical Plan Patient is status post bilateral greater occipital nerve block. Patient tolerated procedure well and was discharged home in stable condition with discharge instructions. All questions were answered. We will follow-up in two weeks via telephone or in clinic to assess response to therapy. A follow-up appointment was made during today's visit. Scribed for Dr. Jose by Ian Marcum, medical staff specialist, on 12/07/2023. I, Dr. Jose, have personally reviewed and agree with the information entered by the scribe. Coding Level of Care Code Procedure Only Diagnoses Occipital neuralgia M54.81 CPT Codes Nerve Block - CPT: 41213-Pgqzuyq Occipital ([id number])
[2023-12-07 09:19] VITALS: BP 125/63; PULSE 67; RESP 14; O2SAT 97; BMI 17.0
== END 2023-12-07 09:44 | disposition home or self-care (01) ==
PROVIDERS: PCP Physician Assistant; Visit Provider Internal Medicine
DX: M54.81 Occipital neuralgia (principal)
CPT/HCPCS: 64405; 64450

== ENCOUNTER → 2023-12-07 09:13 | Outpatient (BNVA) | payer OTHER, SELFPAY | PROVIDERS: PCP Physician Assistant; Visit Provider Internal Medicine | DX: M54.81 Occipital neuralgia (principal) | CPT/HCPCS: 64405; 64450; J2795 ==